=== PATIENT | female | born 1995 | race Caucasian/White ===

== ENCOUNTER 2017-01-04 13:26 | Emergency (ER) | payer OTHER ==
--- NOTE | 2017-01-04 13:38 | ED GI/GU/ABDOMINAL COMPLAINT ---
See Addendum History of Present Illness General Chief Complaint: Abdominal Pain/Flank Pain Stated Complaint: "PAIN IN APPENDX" PER MOM Source: patient, family, old records Exam Limitations: no limitations Vital Signs & Intake/Output Vital Signs & Intake/Output Vital Signs Date Time Temp Pulse Resp B/P Pulse O2 O2 Flow FiO2 Ox Delivery Rate 01/04 1636 97.9 80 18 127/58 99 Room Air 01/04 1334 98.3 84 20 122/81 96 Room Air Allergies Coded Allergies: No Known Allergies (01/04/17) Reconcile Medications Dicyclomine Hydrochloride (Bentyl) 10 MG CAPSULE 1 CAP PO TID PRN PAIN Norethindrone-E.estradiol-Iron (Minastrin 24 Fe Chewable Tab) 1 MG-20 MCG (24)/ 75 MG (4) TAB.CHEW 1 TAB PO DAILY BC (Reported) Ondansetron HCl 8 MG TABLET 1 TAB PO Q8P PRN NAUSEA/VOMITING (Reported) Promethazine HCl 12.5 MG TABLET 1 TAB PO Q6-8 PRN NAUSEA Triage Note: PT C/O RMQ PAIN X 2 DAYS +N/V/D. PT STATES +FEVERS. SENT IN BY FAUCET POLISHER FOR R/O APPY Triage Nurses Notes Reviewed? yes LMP (ages 10-50): LAST WEEK ? N Is pt currently ? No Onset: Abrupt Duration: day(s): (3), constant, waxing and waning Timing: recent history Quality/Severity: aching, moderate, sharpness Severity Numbers: 6 Location: right lower quadrant Radiation: no radiation Activities at Onset: none Prior Abdominal Problems: none Modifying Factors: Worsens With: palpation. Associated Symptoms: diarrhea, nausea/vomiting HPI: 21-year-old female presents emergency room for evaluation with her mother complaining of a three-day history of right-sided lower quadrant nonradiating abdominal pain associated with nausea vomiting and diarrhea. She was seen by her offset press operator helper yesterday and was prescribed Zofran which she is taking without improvement. Nothing makes the pain better or worse other than palpation. No urinary symptoms. Her last menstrual cycle was last week and normal per the patient vaginal bleeding or discharge. She is not taken anything specifically for pain no chest pain or shortness of breath (CJ DAVIS,GARRETT) Past History Travel History Traveled to [place] past 21 day No Medical History Any Pertinent Medical History? none Surgical History Surgical History: none Psychosocial History What is your primary language Setswana Tobacco Use: Never used Family History Hx Contributory? No (GARRETT AYALA) Review of Systems Review of Systems Constitutional: Reports: see HPI. All Other Systems: Reviewed and Negative Comments Review of systems: See HPI, All other systems negative. Constitutional, no chills no fever, no malaise HEENT: No visual changes no sore throat no congestion Cardiovascular: No chest pain , no palpitation , Skin, no jaundice no rashes, no change in skin Respiratory: No dyspnea no cough no sputum GI: nausea vomiting, diarrhea, : No dysuria No hematuria, no frequency Muscle skeletal: No joint pain, no back pain, no neck pain, Neurologic: No numbnessno headache Psych: No stress Heme/endocrine: No bruising no bleeding Immunology: No lymphadenopathy (GARRETT AYALA) Physical Exam Physical Exam General Appearance: well developed/nourished, alert, awake Gastrointestinal: soft Comments: Well-developed well-nourished person in no acute distress HEENT: Normal EENT exam; PERRL, EOMI. HEAD is atraumatic. moist mucous membranes. Neck: Supple, normal range of motion Back: Nontender, no CVA tenderness. Full range of motion Cardiovascular: Regular rate and rhythms no murmurs rubs or gallops, normal JVP Respiratory: Patient speaking in full complete sentences. Breath sounds clear to auscultation bilaterally: NO W/R/R Abdomen: Soft, tender palpation over the right lower quadrant, negative Rovsing' s negative obturator sign nondistended, no appreciable organomegaly. Normal bowel sounds. No rebound/guarding, No appreciable enlargement of the abdominal aorta, No ascites. Extremity: No edema, full range of motion of extremities Neuro: Alert oriented x3, motor sensory normal There were no obvious focal neurologic abnormalities. Skin: No appreciable rash on exposed skin, skin is warm and dry. Psych: Mood and affect is normal, memory and judgment is normal. Core Measures ACS in differential dx? No Severe Sepsis Present: No Septic Shock Present: No (GARRETT AYALA) Progress Differential Diagnosis: appendicitis, biliary colic, bowel obstruction, colon cancer, ectopic , gastritis, hepatitis, inflamm bowel dis, intrauterine , kidney stone, ovarian cyst, pancreatitis, PID/cervicitis, peptic ulcer, PUD/GERD, perforated viscous, SBO, threatened AB, UTI/pyelo Plan of Care: Orders Procedure Date/time Status Saline Lock 01/04 1403 Active LIPASE 01/04 1403 Complete COMPREHENSIVE METABOLIC PANEL 01/04 1403 Complete CBC WITHOUT DIFFERENTIAL 01/04 1403 Complete AMYLASE 01/04 1403 Complete URINE 01/04 1334 Complete URINALYSIS 01/04 1334 Complete Laboratory Tests 01/04/17 1415: Anion Gap 10, Estimated GFR > 60, BUN/Creatinine Ratio 11.7, Glucose 83, Calcium 10.1, Total Bilirubin 0.6, AST 17, ALT 26, Alkaline Phosphatase 38, Total Protein 7.1, Albumin 4.2, Globulin 2.9, Albumin/Globulin Ratio 1.4, Amylase 58, Lipase 67, CBC w Diff NO MAN DIFF REQ, RBC 4.34, MCV 89.3, MCH 29.6, RDW 12.5, MPV 8.8, Gran % 58.0, Lymphocytes % 31.1, Monocytes % 5.0, Eosinophils % 5.3 H, Basophils % 0.6, Absolute Granulocytes 3.8, Absolute Lymphocytes 2.0, Absolute Monocytes 0.3, Absolute Eosinophils 0.3, Absolute Basophils 0, PUBS MCHC 33.2 01/04/17 1349: Urine Color YEL, Urine Clarity CLEAR, Urine pH 8.5 H, Ur Specific [place] 1.020 , Urine Protein NEG, Urine Ketones NEG, Urine Nitrite NEG, Urine Bilirubin NEG, Urine Urobilinogen 0.2, Ur Leukocyte Esterase NEG, Ur Microscopic EXAM NOT REQUIRED, Urine Hemoglobin NEG, Urine Glucose NEG, Urine Test NEGATIVE Patient medicated with Toradol 30 mg labs ordered old records reviewed CAT scan ordered Repeat evaluation patient reports to still feeling nauseous however requesting food and drink. Abdomen is soft with minimal tenderness to right lower quadrant , discussed them at length her CAT scan findings ultrasound was ordered Discussed with the patient and her mother her ultrasound findings need for close follow-up with her j2ee software engineer as well as primary care physician on Saturday bland diet clear liquids advance as tolerated prescription for Bentyl and Phenergan was provided, advised return to ER anytime sooner for symptoms worsen. I discussed with the patient at length all of their results. I had an extensive conversation regarding need for close follow up with their primary care physician this week as well as return precautions. I answered all of their questions, they feel comfortable with the plan and follow-up care. I discussed the medications that they will receive with the patient. I gave them signs and symptoms that could indicate an adverse reaction. I have advised them to limit their activities until they can see how they respond to the medication. (CJ ADVIS,GARRETT) Diagnostic Imaging: Viewed by Me: CT Scan. Discussed w/RAD: CT Scan. Radiology Impression: PATIENT: CAR KAMINSKI PRESENT AGE: 21 PATIENT ACCOUNT NO: [id number] : 96 LOCATION: [facility] ([place]) ORDERING PHYSICIAN: GARRETT DAVIS SERVICE DATE: 01/04/17 EXAM TYPE: CAT - CT ABD & PELVIS W IV CONTRAST EXAMINATION: CT ABDOMEN AND PELVIS WITH CONTRAST CLINICAL INFORMATION: 21-year-old female with right lower quadrant abdominal pain, nausea vomiting and diarrhea. COMPARISON: None TECHNIQUE: Multidetector volumetric imaging was performed of the abdomen and pelvis before and after the IV administration of 94 mL of Optiray 320 intravenous contrast. Sagittal and coronal reformatted images were obtained on the technologist's workstation. DLP: 258.38 mGy-cm FINDINGS: LUNG BASES: The visualized lung bases are unremarkable. LIVER, GALLBLADDER, AND BILIARY TREE: The liver is normal in size, shape, and attenuation. No focal hepatic lesion or biliary ductal dilatation is present. The gallbladder is decompressed with no evidence of radiopaque gallstones, gallbladder wall thickening, or obvious pericholecystic inflammatory changes. PANCREAS: Unremarkable. SPLEEN: Unremarkable. ADRENAL GLANDS: Unremarkable. KIDNEYS AND URETERS: The kidneys are normal in size, shape , and attenuation. No hydronephrosis, hydroureter, or calculi seen. No perinephric stranding. BLADDER: Decompressed. GASTROINTESTINAL TRACT: There is no bowel obstruction, free intraperitoneal air or fluid. The appendix appears within normal limits and is best visualized on coronal images 19-26. Moderate amount of stool seen throughout the colon suggesting constipation. ABDOMINAL WALL: No significant hernia is appreciated. LYMPH NODES: No mesenteric, retroperitoneal or pelvic lymphadenopathy. VASCULAR: Nonaneurysmal abdominal aorta. Patent portal and renal veins. PELVIC VISCERA: The uterus demonstrates heterogeneous enhancement. Adnexa not well-visualized. No definite adnexal mass. There is a small amount of pelvic free fluid. OSSEOUS STRUCTURES: There are no aggressive osseous lesions. IMPRESSION: 1. No definite acute intra-abdominal or pelvic abnormality. Appendix appears within normal limits. 2. Heterogeneous appearing uterus, nonspecific finding. The adnexa are not definitively visualized. There is a small amount of pelvic free fluid. Further evaluation can be obtained with pelvic ultrasound, if clinically indicated. 3. Moderate amount of stool throughout the colon. DICTATED BY: LOR OCAMPO DO DATE/TIME DICTATED:01/04/171453 STATION SUPERINTENDENT:JULIOCESAR DATE/TIME TRANSCRIBED:1453 CONFIDENTIAL, DO NOT COPY WITHOUT APPROPRIATE AUTHORIZATION. < Electronically signed in Other Vendor System> SIGNED BY: LOR OCAMPO DO 01/04/17 1511, PATIENT: CAR KAMINSKI PRESENT AGE : 21 PATIENT ACCOUNT NO: [id number] : 96 LOCATION: [facility] ([place]) ORDERING PHYSICIAN: GARRETT DAVIS SERVICE DATE: 01/04/17 EXAM TYPE: US - US- PELVIC MASS DIAG EXAMINATION: US PELVIC MASS DIAGNOSIS CLINICAL INFORMATION: Evaluate for ovarian cyst right lower quadrant abdominal pain COMPARISON: CT scan the abdomen and pelvis performed same day TECHNIQUE: Transabdominal pelvic ultrasound performed FINDINGS: Uterus: 7.1 x 3.3 x 4.5 cm. Cervical length 2 cm. Endometrial thickness 0.4 cm. No masses. Right ovary: 2.1 x 1.2 x 1.7 cm for a volume of 2.2 mL. No masses. Left ovary: 2.6 x 1.8 x 1.5 cm with a volume of 3.6 mL. No masses. Small amount of free fluid noted in the cul-de-sac posterior to the right ovary IMPRESSION: No definite significant abnormality. Trace fluid in the dependent portion of the pelvis. No ovarian cyst. DICTATED BY: OLIVE LENNON MD DATE/TIME DICTATED:01/04/171604 STATION SUPERINTENDENT:JULIOCESAR DATE/TIME TRANSCRIBED:01/04/171604 CONFIDENTIAL, DO NOT COPY WITHOUT APPROPRIATE AUTHORIZATION. <Electronically signed in Other Vendor System> SIGNED BY: OLIVE LENNON MD 01/04/17 1612 Initial ED EKG: none (CJ DAVIS,GARRETT) Departure Departure Time of Disposition: 1625 Disposition: HOME OR SELF CARE Condition: Stable Clinical Impression Primary Impression: Abdominal pain Secondary Impressions: Nausea & vomiting Additional Instructions: Follow-up with her primary care physician on Saturday. [place] diet clear liquids advance diet as tolerated no fatty spicy greasy foods. Bentyl as discussed for pain and Phenergan for nausea. Return anytime sooner with any concerns. These prescriptions were sent to your pharmacy Departure Forms: Customer Survey General Discharge Information Prescriptions: Current Visit Scripts Dicyclomine Hydrochloride (Bentyl) 1 CAP PO TID PRN PAIN #12 CAP Promethazine HCl 1 TAB PO Q6-8 PRN NAUSEA #10 TAB (GARRETT AYALA) PA/STONECUTTER APPRENTICE HAND Co-Sign Statement Statement: ED Attending supervision documentation- [] I saw and evaluated the patient. I have also reviewed all the pertinent lab results and diagnostic results. I agree with the findings and the plan of care as documented in the PA's/STONECUTTER APPRENTICE HAND's documentation. [X] I have reviewed the ED Record and agree with the PA's/STONECUTTER APPRENTICE HAND's documentation. [] Additions or exceptions (if any) to the PAs/STONECUTTER APPRENTICE HAND's note and plan are summarized below: [] (ANKITA KAPOOR DO
[2017-01-04] MEDS ORDERED: MINASTRIN 24 F1 EACH PO (14:11)
[2017-01-04] MEDS ORDERED: ONDANSETRON HCL8 MG PO (14:11)
[2017-01-04 14:30] LABS: ABSOLUTE BASOPHIL COUNT 0 /CUMM (0.0-0.2); ABSOLUTE EOSINOPHIL COUNT 0.3 /CUMM (0.0-0.7); ABSOLUTE GRANULOCYTE CT 3.8 /CUMM (1.4-6.5); ABSOLUTE MONOCYTE COUNT 0.3 /CUMM (0.10-0.60); BASOPHIL % 0.6 % (0.0-2.0); EOSINOPHIL % 5.3 % (0-5); HEMATOCRIT 38.8 % (37-47); MEAN CORPUSCULAR HGB 29.6 PG (27.0-31.0); MEAN CORPUSCULAR HGB CONC 33.2 G/DL (33.0-37.0); MEAN CORPUSCULAR VOLUME 89.3 FL (81.0-99.0); MEAN PLATELET VOLUME 8.8 FL (7.4-10.4); PLATELET COUNT 232 /CUMM (130-400); RBC DISTRIBUTION WIDTH 12.5 % (11.5-14.5); RED BLOOD CELL CT 4.34 /CUMM (4.20-5.40); WHITE BLOOD CELL COUNT 6.5 /CUMM (4.8-10.8)
--- NOTE | 2017-01-04 15:11 | CT SCAN REPORT ---
EXAMINATION: CT ABDOMEN AND PELVIS WITH CONTRAST CLINICAL INFORMATION: 21-year-old female with right lower quadrant abdominal pain, nausea vomiting and diarrhea. COMPARISON: None TECHNIQUE: Multidetector volumetric imaging was performed of the abdomen and pelvis before and after the IV administration of 94 mL of Optiray 320 intravenous contrast. Sagittal and coronal reformatted images were obtained on the technologist's workstation. DLP: 258.38 mGy-cm FINDINGS: LUNG BASES: The visualized lung bases are unremarkable. LIVER, GALLBLADDER, AND BILIARY TREE: The liver is normal in size, shape, and attenuation. No focal hepatic lesion or biliary ductal dilatation is present. The gallbladder is decompressed with no evidence of radiopaque gallstones, gallbladder wall thickening, or obvious pericholecystic inflammatory changes. PANCREAS: Unremarkable. SPLEEN: Unremarkable. ADRENAL GLANDS: Unremarkable. KIDNEYS AND URETERS: The kidneys are normal in size, shape, and attenuation. No hydronephrosis, hydroureter, or calculi seen. No perinephric stranding. BLADDER: Decompressed. GASTROINTESTINAL TRACT: There is no bowel obstruction, free intraperitoneal air or fluid. The appendix appears within normal limits and is best visualized on coronal images 19-26. Moderate amount of stool seen throughout the colon suggesting constipation. ABDOMINAL WALL: No significant hernia is appreciated. LYMPH NODES: No mesenteric, retroperitoneal or pelvic lymphadenopathy. VASCULAR: Nonaneurysmal abdominal aorta. Patent portal and renal veins. PELVIC VISCERA: The uterus demonstrates heterogeneous enhancement. Adnexa not well-visualized. No definite adnexal mass. There is a small amount of pelvic free fluid. OSSEOUS STRUCTURES: There are no aggressive osseous lesions. IMPRESSION: 1. No definite acute intra-abdominal or pelvic abnormality. Appendix appears within normal limits. 2. Heterogeneous appearing uterus, nonspecific finding. The adnexa are not definitively visualized. There is a small amount of pelvic free fluid. Further evaluation can be obtained with pelvic ultrasound, if clinically indicated. 3. Moderate amount of stool throughout the colon.
--- NOTE | 2017-01-04 16:12 | ULTRASOUND REPORT ---
EXAMINATION: US PELVIC MASS DIAGNOSIS CLINICAL INFORMATION: Evaluate for ovarian cyst right lower quadrant abdominal pain COMPARISON: CT scan the abdomen and pelvis performed same day TECHNIQUE: Transabdominal pelvic ultrasound performed FINDINGS: Uterus: 7.1 x 3.3 x 4.5 cm. Cervical length 2 cm. Endometrial thickness 0.4 cm. No masses. Right ovary: 2.1 x 1.2 x 1.7 cm for a volume of 2.2 mL. No masses. Left ovary: 2.6 x 1.8 x 1.5 cm with a volume of 3.6 mL. No masses. Small amount of free fluid noted in the cul-de-sac posterior to the right ovary IMPRESSION: No definite significant abnormality. Trace fluid in the dependent portion of the pelvis. No ovarian cyst.
[2017-01-04] MEDS ORDERED: PROMETHAZINE12.5 M2 PO (16:28)
[2017-01-04] MEDS ORDERED: BENTYL10 M1 PO (16:28)
== END 2017-01-04 16:37 ==
LOC: ERH 13:26
PROVIDERS: Physician Assistant Medical
DX: R11.2 Nausea with vomiting, unspecified (principal); R10.31 Right lower quadrant pain
CPT/HCPCS: 74177; 81003; 81025; 96374; 96375; J1885; J2405; J2550